=== PATIENT | male | born 1960 | race Caucasian/White ===

== ENCOUNTER 2023-02-10 14:56 | Outpatient (OUT) | payer OTHER, SELFPAY ==
--- NOTE | 2023-02-10 | XR_ITS ---
The [address] [address] Patient Name: SHANTE TOUSSAINT MRN: [id number] date: 1960 Sex: M Assigned Patient Location: [facility] Current Patient Location: [facility] Accession/Order Number: [id number] Exam Date: 02/10/2023 15:20 Report Date: 02/10/2023 16:50 At the request of: PORSHA SULLIVAN Procedure: XR foot DANA min 3V EXAMINATION: XR ankle DANA min 3V, XR foot DANA min 3V HISTORY: RIGHT FOOT AND ANKLE PAIN COMPARISON: No relevant comparison available. FINDINGS: RIGHT FINDINGS: BONES: Hindfoot inversion. Mild to moderate degenerative changes most significant at the tibiotalar joint where there is moderate to severe narrowing medially. SOFT TISSUES: Moderate asymmetric subcutaneous edema OTHER: Negative. LEFT FINDINGS: BONES: Hindfoot inversion. Mild to moderate degenerative changes most significant at the tibiotalar joint where there is moderate to severe narrowing medially. SOFT TISSUES: Mild subcutaneous edema OTHER: Negative. XR/XR foot DANA min 3V IMPRESSION: RIGHT CONCLUSION: Moderate degenerative changes with moderate subcutaneous edema LEFT CONCLUSION: Moderate degenerative changes with mild subcutaneous edema Electronically authenticated by: LOIDA CASTORENA Date: 02/10/2023 16:50
--- NOTE | 2023-02-10 | XR_ITS ---
The [address] [address] Patient Name: SHANTE TOUSSAINT MRN: [id number] date: 1960 Sex: M Assigned Patient Location: [facility] Current Patient Location: [facility] Accession/Order Number: [id number] Exam Date: 02/10/2023 15:20 Report Date: 02/10/2023 16:50 At the request of: PORSHA SULLIVAN Procedure: XR ankle DANA min 3V EXAMINATION: XR ankle DANA min 3V, XR foot DANA min 3V HISTORY: RIGHT FOOT AND ANKLE PAIN COMPARISON: No relevant comparison available. FINDINGS: RIGHT FINDINGS: BONES: Hindfoot inversion. Mild to moderate degenerative changes most significant at the tibiotalar joint where there is moderate to severe narrowing medially. SOFT TISSUES: Moderate asymmetric subcutaneous edema OTHER: Negative. LEFT FINDINGS: BONES: Hindfoot inversion. Mild to moderate degenerative changes most significant at the tibiotalar joint where there is moderate to severe narrowing medially. SOFT TISSUES: Mild subcutaneous edema OTHER: Negative. XR/XR ankle DANA min 3V IMPRESSION: RIGHT CONCLUSION: Moderate degenerative changes with moderate subcutaneous edema LEFT CONCLUSION: Moderate degenerative changes with mild subcutaneous edema Electronically authenticated by: LOIDA CASTORENA Date: 02/10/2023 16:50
== END 2023-02-10 14:57 | disposition home or self-care (01) ==
LOC: RAD 15:15
PROVIDERS: Visit Provider Podiatrist Foot & Ankle Surgery
DX: M25.571 Pain in right ankle and joints of right foot (principal); M79.671 Pain in right foot
CPT/HCPCS: 73610; 73630

== ENCOUNTER 2023-03-03 14:20 | Outpatient (OUT) | payer OTHER, SELFPAY ==
--- NOTE | 2023-03-03 14:27 | CT_ITS ---
[address] [address] Patient Name: ARPIT TOUSSAINT MRN: [id number] date: 1960 Sex: M Assigned Patient Location: CT Current Patient Location: CT Accession/Order Number: [id number] Exam Date: 03/03/2023 14:35 Report Date: 03/03/2023 18:45 At the request of: PORSHA SULLIVAN Procedure: CT ankle LT wo con EXAMINATION: CT ankle RT wo con, CT ankle LT wo con HISTORY: DJD COMPARISON: No relevant comparison available. TECHNIQUE: Multi-planar CT images were created without IV contrast. Dose reduction techniques were achieved by using automated exposure control and/or adjustment of mA and/or kV according to patient size and/or use of iterative reconstruction technique. FINDINGS: RIGHT ANKLE: BONES: No acute fracture or dislocation. Moderate to severe degenerative changes of the midfoot and hindfoot with [id number] articulation bony remodeling and subchondral cystic changes of the posterior talocalcaneal articulation. Moderate enthesopathic spurring of the calcaneus at the Achilles and plantar insertions. Moderate marginal osteophyte formation. Moderate to severe narrowing of the tibiotalar joint with some mild flattening of the talar dome SOFT TISSUES: Diffuse soft tissue swelling EFFUSION: Small joint effusion OTHER: Negative. LEFT ANKLE: BONES: No acute fracture or dislocation. Mild to moderate diffuse degenerative changes most significant along the anterior tibiotalar joint where some flattening of the talar dome is noted and there are subchondral degenerative cystic changes. Mild enthesopathic spurring of the calcaneus at the Achilles and plantar insertions. Mild marginal osteophyte formation. SOFT TISSUES: On soft tissue swelling EFFUSION: Small joint effusion OTHER: Negative. CT/CT ankle LT wo con IMPRESSION: Moderate to severe right ankle osteoarthritis [id number]-sx-mamhipcn left ankle osteoarthritis Electronically authenticated by: LOIDA CASTORENA Date: 03/03/2023 18:45
--- NOTE | 2023-03-03 14:33 | CT_ITS ---
[address] [address] Patient Name: ARPIT TOUSSAINT MRN: [id number] date: 1960 Sex: M Assigned Patient Location: CT Current Patient Location: CT Accession/Order Number: [id number] Exam Date: 03/03/2023 14:35 Report Date: 03/03/2023 18:45 At the request of: PORSHA SULLIVAN Procedure: CT ankle RT wo con EXAMINATION: CT ankle RT wo con, CT ankle LT wo con HISTORY: DJD COMPARISON: No relevant comparison available. TECHNIQUE: Multi-planar CT images were created without IV contrast. Dose reduction techniques were achieved by using automated exposure control and/or adjustment of mA and/or kV according to patient size and/or use of iterative reconstruction technique. FINDINGS: RIGHT ANKLE: BONES: No acute fracture or dislocation. Moderate to severe degenerative changes of the midfoot and hindfoot with jifo-qw-nlnd articulation bony remodeling and subchondral cystic changes of the posterior talocalcaneal articulation. Moderate enthesopathic spurring of the calcaneus at the Achilles and plantar insertions. Moderate marginal osteophyte formation. Moderate to severe narrowing of the tibiotalar joint with some mild flattening of the talar dome SOFT TISSUES: Diffuse soft tissue swelling EFFUSION: Small joint effusion OTHER: Negative. LEFT ANKLE: BONES: No acute fracture or dislocation. Mild to moderate diffuse degenerative changes most significant along the anterior tibiotalar joint where some flattening of the talar dome is noted and there are subchondral degenerative cystic changes. Mild enthesopathic spurring of the calcaneus at the Achilles and plantar insertions. Mild marginal osteophyte formation. SOFT TISSUES: On soft tissue swelling EFFUSION: Small joint effusion OTHER: Negative. CT/CT ankle RT wo con IMPRESSION: Moderate to severe right ankle osteoarthritis Admf-qj-vrxxerdn left ankle osteoarthritis Electronically authenticated by: LOIDA CASTORENA Date: 03/03/2023 18:45
== END 2023-03-03 14:21 | disposition home or self-care (01) ==
LOC: CT 14:23
PROVIDERS: PCP Family Medicine; Visit Provider Podiatrist Foot & Ankle Surgery
DX: M21.6X1 Other acquired deformities of right foot (principal); M21.6X2 Other acquired deformities of left foot; M19.072 Primary osteoarthritis, left ankle and foot; M19.071 Primary osteoarthritis, right ankle and foot
CPT/HCPCS: 73700

== ENCOUNTER 2023-03-15 14:32 | Outpatient (OUT) | payer OTHER, SELFPAY ==
--- NOTE | 2023-03-15 15:39 | CA_ITS ---
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 : 1960 Requested By: PORSHA SULLIVAN Order Number: [id number] Reading MD: DANO DUCKWORTH Interpretive Statements Biphasic doppler waveforms PVR waveforms with normal upstroke, amplitude and dicrotic notch Right - no significant pressure gradient between cuffs - normal JZAZ, TBI Left: - significant pressure gradient between the thigh and calf cuffs - normal JAZZ, TBI Impression - Elevated indices (B/L thigh) consistent with calcified, noncompressible arterial mcclure, which may underestimate the degree of arterial disease present - Normal arterial evaluation of the lower extremities without hemodynamic impairment of the B/L lower extremties at rest (right JAZZ 1.15, left JAZZ 1.26) Electronically Signed On 03-16-2023 7:16:12 EDT by DANO DUCKWORTH
== END 2023-03-15 14:33 | disposition home or self-care (01) ==
LOC: CARD 14:33
PROVIDERS: PCP Family Medicine; Visit Provider Podiatrist Foot & Ankle Surgery
DX: R09.89 Other specified symptoms and signs involving the circulatory and respiratory systems (principal)
CPT/HCPCS: 93923

== ENCOUNTER 2023-03-22 12:09 | Outpatient (OUT) | payer OTHER, SELFPAY ==
--- NOTE | 2023-03-22 09:31 | ECG_ITS ---
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
--- NOTE | 2023-03-22 10:13 | PM.PRESUREVA ---
History of Present Illness History of Present Illness Chief complaint: other acquired deformities right foot, ankle pain Narrative: Patient presents for preadmission testing. The patient reports a long history of right foot and ankle pain and deformity. He states he does have neuropathy and edema as well. He did try physical therapy and a brace as well as custom inserts with no relief of his pain. Review of Systems ROS Narrative REVIEW OF SYSTEMS: Negative except as stated in HPI, ten or more systems reviewed. Constitutional: No fever , chills, weakness ENT: No sore throat or epistaxis Cardiovascular: No chest pain, palpitations, or activity intolerance Respiratory: No shortness of breath, cough, or wheezing Gastrointestinal: No abdominal pain, constipation, diarrhea, or vomiting Genitourinary: No dysuria or hematuria Neurological: No numbness, tingling, weakness, or headache Psychiatric: No mood changes [facility] Medical History (Updated 03/22/23 @ 09:58 by Dulce Herbert NP) Alcoholism ?F10.20 - Alcohol dependence, uncomplicated (ICD-10) Ankle pain ?M25.579 - Pain in unspecified ankle and joints of unspecified foot (ICD-10) 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 pes cavus, unspecified foot (ICD-10) COVID-19 ?U07.1 - COVID-19 (ICD-10) Dyspnea on exertion ?R06.09 - Other forms of dyspnea (ICD-10) Extremity edema ?R60.0 - Localized edema (ICD-10) Foot deformity ?M21.969 - Unspecified acquired deformity of unspecified lower leg (ICD-10) Foot pain ?M79.673 - Pain in unspecified foot (ICD-10) Heartburn ?R12 - Heartburn (ICD-10) Hypertension ?I10 - Essential (primary) hypertension (ICD-10) Liver disease ?K76.9 - Liver disease, unspecified (ICD-10) 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 - Alcoholic liver disease, unspecified (ICD-10) Surgical History (Updated 03/22/23 @ 09:48 by Dulce Herbert NP) History of appendectomy ?Z90.49 - Acquired absence of other specified parts of digestive tract (ICD-10) History of hernia repair ?Z98.890 - Other specified postprocedural states (ICD-10) ?Z87.19 - Personal history of other diseases of the digestive system (ICD-10) History of tonsillectomy ?Z90.89 - Acquired absence of other organs (ICD-10) Family History (Updated 03/22/23 @ 09:48 by Dulce Herbert NP) Other Family history of coronary artery disease Family history of diabetes mellitus Family history of heart disease Social History (Updated 03/22/23 @ 09:44 by Dulce Herbert NP) Within the past year, how often did you have a drink containing alcohol: 2-4 times a month Smoking status: Former smoker Non-prescribed substance use: denies use Previous occupational history: [employer] Highest level of school completed/degree received: high school graduate Meds Home Medications and Allergies Home Medications Medication Instructions Recorded Confirmed Type folic acid 1 mg tablet 1 mg PO QDAY 03/22/23 03/22/23 History furosemide 20 mg tablet 20 mg PO DAILY 03/22/23 03/22/23 History gabapentin 100 mg capsule 100 mg PO Q12H 03/22/23 03/22/23 History metoprolol succinate 50 mg 50 mg PO DAILY 03/22/23 03/22/23 History tablet,extended release 24 hr omeprazole 20 mg capsule,delayed 20 mg PO DAILY 03/22/23 03/22/23 History release spironolactone 50 mg tablet 50 mg PO DAILY 03/22/23 03/22/23 History Allergies Allergy/AdvReac Type Severity Reaction Status Date / Time No Known Drug Allergies Allergy Verified 03/22/23 09:40 Exam Narrative Exam Narrative: Constitutional: Awake, alert, comfortable, Chronically ill-appearing, nontoxic, interactive, vital signs as charted Head: Normocephalic, atraumatic Eyes: Mild scleral icterus Neck: Supple, normal appearance, normal range of motion, no meningeal signs, no lymphadenopathy Respiratory: No respiratory distress, breath sounds clear Cardiovascular: Bradycardic rate, regular rhythm, strong and regular heart tones Musculoskeletal: Obvious right foot and ankle deformity, diffuse lateral ankle and foot tenderness, pulses intact, sensation diminished, bilateral pedal edema, 2+ left, 3+ right Skin: Jaundiced Neuro: No other neurological deficits Psychiatric: Oriented ?3, normal affect Assessment and Plan Assessment and Plan (1) Ankle pain: (2) Cavus deformity of foot: (3) Extremity edema: (4) Foot deformity: (5) Foot pain: Plan Right ankle and subtalar joint fusion, soft tissue release, osteotomies as needed scheduled with Dr. Lopez 04/05/2023.
[2023-03-22 10:32] LABS: INR 1.12; Partial Thromboplastin Time 32.6 sec (22.3-36.2); Prothrombin Time 11.8 sec (9.0-11.6)
[2023-03-22 10:39] LABS: Basophils Absolute Auto 0.1 10^3/uL (0.0-0.1); Basophils Percent Auto 1.2 % (0.2-2.0); Eosinophils Absolute Auto 0.2 10^3/uL (0.0-0.7); Eosinophils Percent Auto 2.8 % (0.9-7.0); Hematocrit 44.7 % (42.0-54.0); Hemoglobin 15.3 g/dL (14.0-18.0); Immature Granulocytes Abs Auto 0.02 10^3/uL (0.00-0.03); Immature Granulocytes Pct Auto 0.4 % (0.0-0.5); Lymphocytes Absolute Auto 0.8 10^3/uL (1.2-3.8); Lymphocytes Percent Auto 14.2 % (20.5-60.0); Mean Corpuscular HGB Conc 34.2 g/dL (29.9-35.2); Mean Corpuscular Hemoglobin 33.7 pg (25.9-34.0); Mean Corpuscular Volume 98.5 fL (80.0-94.0); Mean Platelet Volume 11.8 fL (9.5-13.5); Monocytes Absolute Auto 0.7 10^3/uL (0.3-0.8); Monocytes Percent Auto 11.9 % (1.7-12.0); Neutrophils Absolute Auto 3.9 10^3/uL (1.4-6.5); Neutrophils Percent Auto 69.5 % (43.0-75.0); Platelet Count 124 10^3/uL (150-450); Red Blood Count 4.54 10^6/uL (4.70-6.10); Red Cell Distribution Width 13.2 % (11.0-15.0); White Blood Count 5.6 10^3/uL (4.0-11.0)
[2023-03-22 10:57] LABS: Anion Gap 7.4; BUN Creatinine Ratio 14.9; Calcium 9.1 mg/dL (8.5-10.1); Carbon Dioxide 30.4 mmol/L (21.0-32.0); Chloride 101 mmol/L (98-107); Estimated GFR (African America >60 (>=60); Estimated GFR (Non-African Ame >60 (>=60); Glucose 91 mg/dL (74-106); Potassium 3.8 mmol/L (3.5-5.1); Sodium 135 mmol/L (136-145)
[2023-03-22 11:12] LABS: Alanine Aminotransferase 73 U/L (16-63); Albumin Globulin Ratio 0.4; Albumin Level 2.5 g/dL (3.4-5.0); Alkaline Phosphatase 173 U/L (46-116); Aspartate Amino Transferase 90 U/L (15-37); Bilirubin Total 2.1 mg/dL (0.2-1.0); Total Protein 8.5 g/dL (6.4-8.2)
== END 2023-03-22 12:10 ==
LOC: PST 03-30 09:04
PROVIDERS: PCP Family Medicine; Visit Provider Podiatrist Foot & Ankle Surgery
DX: Z01.810 Encounter for preprocedural cardiovascular examination (principal); Z01.812 Encounter for preprocedural laboratory examination; M21.6X1 Other acquired deformities of right foot; M25.571 Pain in right ankle and joints of right foot; I10 Essential (primary) hypertension
CPT/HCPCS: 80048; 80076; 85025; 85610; 85730; 93005; G0463

== ENCOUNTER 2023-07-27 15:37 | Outpatient (OUT) | payer OTHER, SELFPAY ==
--- NOTE | 2023-07-27 | XR_ITS ---
[address] [address] Patient Name: SHANTE TOUSSAINT MRN: [id number] date: 1960 Sex: M Assigned Patient Location: Current Patient Location: Accession/Order Number: [id number] Exam Date: 07/27/2023 15:40 Report Date: 07/28/2023 08:01 At the request of: PORSHA SULLIVAN Procedure: XR ankle RT min 3V PROCEDURE: XR ankle RT min 3V HISTORY: RIGHT ANKLE PAIN COMPARISON: XR ankle 02/10/2023 FINDINGS: BONES:Narrowing of the medial aspect of the tibiotalar joint with near xiag-oh-sfvm contact. No fracture or dislocation. SOFT TISSUES:No visible soft tissue swelling. EFFUSION:None visible. OTHER: Negative. XR/XR ankle RT min 3V IMPRESSION: 1. Moderate-marked narrowing of the medial aspect of the tibiotalar joint; unchanged. 2. No acute bone abnormality. Electronically authenticated by: AUGIE TELLES Date: 07/28/2023 08:01
== END 2023-07-27 15:38 | disposition home or self-care (01) ==
LOC: EC 15:38
PROVIDERS: PCP Family Medicine; Visit Provider Podiatrist Foot & Ankle Surgery
DX: M21.6X1 Other acquired deformities of right foot (principal); G62.1 Alcoholic polyneuropathy
CPT/HCPCS: 73610

== ENCOUNTER 2023-08-04 13:53 | Outpatient (OUT) | payer OTHER, SELFPAY ==
[2023-08-04 14:41] LABS: INR 1.18; Partial Thromboplastin Time 34.5 sec (22.3-36.2); Prothrombin Time 12.4 sec (9.0-11.6)
== END 2023-08-04 13:54 | disposition home or self-care (01) ==
PROVIDERS: PCP Family Medicine; Visit Provider Physician Assistant
DX: M19.071 Primary osteoarthritis, right ankle and foot (principal)
CPT/HCPCS: 36415; 85610; 85730